=== PATIENT | male | born 1970 | race Caucasian/White ===

== ENCOUNTER 2024-07-25 11:17 | Emergency (ER) | payer OTHER ==
[~2024-07-25] VITALS: Ht 188 cm; Wt 95.0 kg
[2024-07-25 11:36] VITALS: TEMP 98.2; O2SAT 94
[2024-07-25] MEDS ORDERED: ONDANSETRON 4MG ODT PO STA (12:27)
[2024-07-25] MEDS ORDERED: KETOROLAC 30MG/ML VIAL IM STA (12:27)
[2024-07-25 13:25] LABS: HEMATOCRIT. 38.1 % (42.0-52.0); HEMOGLOBIN. 12.5 g/dL (14.0-18.0); LYMPHOCYTES % 31.7 % (20.0-50.0); MEAN CORPUSCULAR HEMOGLOBIN 28.7 pg (28.0-32.0); MEAN CORPUSCULAR HGB CONC 32.7 g/dL (31.0-37.0); MEAN CORPUSCULAR VOLUME 87.6 fL (80.0-94.0); MEAN PLATELET VOLUME 7.2 fl (7.4-10.4); MONOCYTES % 12.7 % (2.0-8.0); NEUTROPHILS % 51.6 % (40.0-76.0); PLATELET 310 x1000/uL (130-400); RED BLOOD CELL COUNT 4.35 mill/uL (4.7-6.1); RED CELL DISTRIBUTION WIDTH 15.3 % (11.6-14.6); WHITE BLOOD COUNT 7.5 x1000/uL (4.5-11.0)
[2024-07-25 13:41] LABS: CHLORIDE 102 mEq/L (98-107); POTASSIUM 4.5 mEq/L (3.5-5.1); SODIUM 134 mEq/L (136-145)
[2024-07-25 13:42] LABS: CALCIUM 8.9 mg/dL (8.7-10.4); CARBON DIOXIDE 30 mEq/L (21-32)
[2024-07-25 13:45] LABS: PROTHROMBIN TIME 10.7 sec (9.6-11.0)
[2024-07-25 13:47] LABS: CREATININE 0.9 mg/dL (0.6-1.3); GLUCOSE 370 mg/dL (70-105)
[2024-07-25 13:48] LABS: UREA NITROGEN BLOOD 10 mg/dL (9-23)
[2024-07-25 13:49] LABS: ALANINE AMINOTRANSFERASE 28 IU/L (10-49); ALBUMIN 3.6 g/dL (3.2-4.8); ASPARTATE AMINOTRANSFERASE 21 IU/L (<34); BILIRUBIN DIRECT 0.2 mg/dL (<=3.0)
[2024-07-25 13:50] LABS: BILIRUBIN TOTAL 0.6 mg/dL (0.1-1.0); PROTEIN TOTAL 6.8 g/dL (6.0-8.3)
[2024-07-25 13:55] LABS: ETHANOL BLOOD < 10 mg/dL (<10)
[2024-07-25 14:28] VITALS: BP 123/61; PULSE 90; RESP 16
[2024-07-25] MEDS: KETOROLAC 30MG/ML VIAL IM NR (14:28)
[2024-07-25] MEDS: ONDANSETRON 4MG ODT PO NR (14:28)
[2024-07-25 15:03] LABS: CLARITY URINE CLEAR (CLEAR); COLOR URINE YELLOW (YELLOW); GLUCOSE URINE 3+ (NEGATIVE); KETONES URINE TRACE (NEGATIVE); LEUKOCYTE ESTERASE URINE NEGATIVE (NEGATIVE); NITRITE URINE NEGATIVE (NEGATIVE); OCCULT BLOOD URINE NEGATIVE (NEGATIVE); PH URINE 5.5 (4.5-8.0); PROTEIN URINE 1+ (NEGATIVE); SPECIFIC GRAVITY URINE 1.049 (1.005-1.030)
[2024-07-25 15:17] LABS: BACTERIA URINE FEW; RBC URINE NONE SEEN /hpf (0-2); SQUAMOUS EPITHELIAL CELL URINE NONE SEEN /lpf (RARE/1+); WBC URINE 0-2 /hpf (0-2); YEAST URINE NONE SEEN
[2024-07-25] MEDS ORDERED: IBUP-2029 MT (15:27)
[2024-07-25 15:37] LABS: *AMPHETAMINES SCREEN URINE NEGATIVE (NEGATIVE); *BARBITURATES SCREEN URINE NEGATIVE (NEGATIVE); *BENZODIAZEPINES SCREEN URINE NEGATIVE (NEGATIVE)
[2024-07-25 15:38] LABS: *COCAINE SCREEN URINE NEGATIVE (NEGATIVE); CANNABINOID URINE SCREEN PRESUMPTIVE POSITIVE (NEGATIVE); ECSTASY MDMA SCREEN URINE NEGATIVE (NEGATIVE); METHADONE URINE SCREEN NEGATIVE (NEGATIVE); OPIATES URINE SCREEN NEGATIVE (NEGATIVE); PHENCYCLIDINE URINE SCREEN NEGATIVE (NEGATIVE)
[2024-07-26] MEDS ORDERED: TOLN30CR17 TP (06:22)
== END 2024-07-25 16:29 | disposition home or self-care (01) ==
LOC: ER 11:17
DX: R59.1 Generalized enlarged lymph nodes (principal); R10.9 Unspecified abdominal pain; R11.2 Nausea with vomiting, unspecified; E11.9 Type 2 diabetes mellitus without complications
CPT/HCPCS: 80076; 80305; 80048; 81003; 80320; 83690; 85025; 85610; 36415; 74176; 96372; 99285; Q0162; J1885; G0480

== ENCOUNTER 2024-07-26 05:10 | Emergency (ER) | payer OTHER ==
[~2024-07-26] VITALS: Ht 182.9 cm; Wt 118.0 kg
[~2024-07-26 05:10] MED LIST: IBUP-2029 MT
[2024-07-26 05:14] VITALS: BP 149/83; PULSE 90; RESP 16; TEMP 99.5; O2SAT 95
[2024-07-26] MEDS ORDERED: TOLN30CR17 TP (06:22)
[2024-07-26] MEDS ORDERED: TOLNAFTATE 1% CREAM 15GM TOP SCH (09:00)
== END 2024-07-26 06:50 | disposition home or self-care (01) ==
LOC: ER 05:10
DX: B35.3 Tinea pedis (principal); E11.9 Type 2 diabetes mellitus without complications; I10 Essential (primary) hypertension; Z88.8 Allergy status to other drugs, medicaments and biological substances
CPT/HCPCS: 99282

== ENCOUNTER 2024-10-31 21:20 | Emergency (ER) | payer OTHER ==
[~2024-10-31] VITALS: Ht 177.8 cm; Wt 85.0 kg
[~2024-10-31 21:20] MED LIST changes: +TOLN30CR17 TP
[2024-10-31 21:26] VITALS: BP 140/88; PULSE 81; RESP 18; TEMP 98; O2SAT 99
[2024-10-31 23:15] LABS: BASOPHILS % 0.4 % (0.0-2.0); EOSINOPHILS % 3.5 % (0.0-5.0); HEMATOCRIT. 39.7 % (42.0-52.0); LYMPHOCYTES % 28.2 % (20.0-50.0); MEAN CORPUSCULAR HEMOGLOBIN 28.2 pg (28.0-32.0); MEAN CORPUSCULAR HGB CONC 32.8 g/dL (31.0-37.0); MEAN PLATELET VOLUME 7.5 fl (7.4-10.4); MONOCYTES % 10.7 % (2.0-8.0); NEUTROPHILS % 57.2 % (40.0-76.0); PLATELET 287 x1000/uL (130-400); RED BLOOD CELL COUNT 4.61 mill/uL (4.7-6.1); RED CELL DISTRIBUTION WIDTH 15.8 % (11.6-14.6); WHITE BLOOD COUNT 9.2 x1000/uL (4.5-11.0)
[2024-10-31 23:18] LABS: CHLORIDE 103 mEq/L (98-107); POTASSIUM 4.5 mEq/L (3.5-5.1); SODIUM 139 mEq/L (136-145)
[2024-10-31 23:19] LABS: CALCIUM 8.9 mg/dL (8.7-10.4); CARBON DIOXIDE 28 mEq/L (21-32)
[2024-10-31 23:24] LABS: CREATININE 0.8 mg/dL (0.6-1.3); GLUCOSE 223 mg/dL (70-105); UREA NITROGEN BLOOD 16 mg/dL (9-23)
[2024-10-31] MEDS ORDERED: METF-414 MT (23:41)
[2024-10-31] MEDS ORDERED: CLOT21CR VG (23:41)
== END 2024-10-31 23:49 ==
LOC: ER 21:20
DX: M79.89 Other specified soft tissue disorders (principal); I10 Essential (primary) hypertension; E11.65 Type 2 diabetes mellitus with hyperglycemia; Z91.148 Patient's other noncompliance with medication regimen for other reason; Z79.84 Long term (current) use of oral hypoglycemic drugs
CPT/HCPCS: 80048; 85025; 36415; 93970; 99284; Z7610